=== PATIENT | female | born 1995 | race Caucasian/White ===

== ENCOUNTER 2018-08-29 07:09 | Emergency (ER) | payer BC ==
[~2018-08-29] VITALS: Ht 165.1 cm; Wt 92.1 kg
[2018-08-29] MEDS ORDERED: LOES1TAB12 PO (07:16)
[2018-08-29] MEDS ORDERED: IMOD2CAP PO (07:16)
[2018-08-29] MEDS ORDERED: ZOFR8TAB24 PO (07:17)
[2018-08-29] MEDS ORDERED: ONDANSETRON 4MG/2ML VIAL (J2405) IV ONE (07:45)
[2018-08-29] MEDS ORDERED: NS 1,000 ML IV ONE (07:45)
[2018-08-29] MEDS ORDERED: KETOROLAC 30 MG/ML VIAL (J1885) IV ONE (08:15)
[2018-08-29 08:26] LABS: BASO # 0.1 10^3/uL (0.0-0.2); BASO % 0.3 % (0.0-1.0); EOS % 0.3 % (0.0-3.0); HEMATOCRIT 45.8 % (36.0-47.0); HEMOGLOBIN 15.2 g/dl (12.0-15.5); LYMPH # 1.8 10^3/uL (1.5-6.5); LYMPH % 11.8 % (24.0-44.0); MEAN CORPUSCULAR HEMOGLOBIN 28.9 pg (27.0-33.0); MEAN CORPUSCULAR HGB CONC 33.2 g/dl (32.0-36.5); MEAN CORPUSCULAR VOLUME 87.1 fl (80.0-96.0); MONO # 0.9 10^3/uL (0.0-0.8); MONO % 6.3 % (0.0-5.0); NEUTROPHILS # 12.1 10^3/uL (1.8-7.7); NEUTROPHILS % 80.9 % (36.0-66.0); PLATELET COUNT, AUTOMATED 368 10^3/uL (150-450); RED BLOOD COUNT 5.26 10^6/uL (4.00-5.40); WHITE BLOOD COUNT 14.9 10^3/uL (4.0-10.0)
[2018-08-29 09:06] LABS: ALBUMIN 3.7 GM/DL (3.2-5.2); ALT/SGPT 56 U/L (12-78); AMYLASE 32 U/L (25-115); BILIRUBIN,DIRECT < 0.1 MG/DL (0.0-0.2); BILIRUBIN,TOTAL 0.3 MG/DL (0.2-1.0); BLOOD UREA NITROGEN 7 MG/DL (7-18); CALCIUM LEVEL 8.9 MG/DL (8.5-10.1); CARBON DIOXIDE LEVEL 25 MEQ/L (21-32); CHLORIDE LEVEL 104 MEQ/L (98-107); CREATININE FOR GFR 0.78 MG/DL (0.55-1.30); GLOMERULAR FILTRATION RATE > 60.0 (>60); GLUCOSE, FASTING 104 MG/DL (70-100); LIPASE 68 U/L (73-393); POTASSIUM SERUM 4.9 MEQ/L (3.5-5.1); SODIUM LEVEL 136 MEQ/L (136-145); TOTAL PROTEIN 7.9 GM/DL (6.4-8.2)
--- NOTE | 2018-08-29 09:23 | REP ---
Right upper quadrant sonography: History: Epigastric abdominal pain, worse after eating. Nausea. No comparison imaging. Findings: Scanning through right upper quadrant of the abdomen demonstrates normal sized thin-walled gallbladder without evidence of stone or polyp. Common bile duct is normal measuring no 0.2 cm. No intrahepatic ductal dilation is seen. There is a hypoechoic lesion in the liver measuring 3.0 x 3.0 x 2.2 cm. This is seen high near the dome of the diaphragm in the right hepatic lobe. This merits further evaluation. It is not typical of a benign hemangioma. No other focal liver lesion is seen. Limited views of the pancreas show no abnormality. There is no evidence of ascites or right renal abnormality. The right kidney measures 11.3 x 4.4 x 4.6 cm. Impression: 3.0 cm focal mass lesion in the right lobe of the liver high near the dome of the diaphragm. Not typical for hemangioma. Recommend further evaluation with MRI scanning with and without intravenous contrast enhancement. Otherwise negative right upper quadrant sonography. Electronically Signed by Ezequiel Sandoval MD 08/29/2018 09:15 A
[2018-08-29] MEDS ORDERED: PROHANCE 279.3MG/ML 5ML VIAL (A9576) As Ordered ONE (10:02)
[2018-08-29] MEDS ORDERED: PROHANCE 279.3MG/ML 15ML VIAL (A9576) As Ordered ONE (10:03)
--- NOTE | 2018-08-29 12:09 | REP ---
MRI ABDOMEN AND LIVER WITHOUT AND WITH IV GADOLINIUM: HISTORY: Liver mass. Comparison is made with today's sonography. Gadolinium enhancement dose is 18.6 mL of intravenous ProHance. Axial and coronal T1 and T2-weighted sequences include spin echo, fast spin echo, diffusion, gradient echo, in- and [id number], and dynamically acquired sequential post contrast imaging. MRI FINDINGS: The lesion seen on ultrasound in the right lobe of the liver posteriorly and superiorly is observed on MRI. No other focal liver lesion is seen. The lesion shows heterogeneous T2 hyperintense signal. It appears slightly smaller on MR images, 2.5 cm in greatest diameter on T2-weighted scans. There is a mild pattern of restricted diffusion on diffusion-weighted scans within the lesion. There is subtle T1 hypointensity in the lesion. On the dynamic postcontrast images, there is bright arterial phase homogeneous enhancement. There is washout visible on the 1-minute image. Persistent enhancement is seen in the central portion. There is no evidence of central scar. No other abnormal enhancement is seen. There is an accessory splenule. No other morphologic abnormality. IMPRESSION: Small hypervascular liver lesion demonstrating washout. Characteristics most compatible with benign hepatic adenoma. Focal nodular hyperplasia could have this appearance as well. Recommend follow up sonography in 6-12 months. Electronically Signed by Ezequiel Sandoval MD 08/29/2018 04:02 P
[2018-08-29] MEDS ORDERED: OMEP20CA3 PO (12:11)
[2018-08-29 12:30] VITALS: BP 131/86
[2018-08-29] MEDS ORDERED: ONDA4TAB6 PO (20:20)
[2018-08-29] MEDS ORDERED: MAALSUS2 PO (20:20)
--- NOTE | 2018-08-30 06:27 | ED PDOC ---
Post-Departure Follow-Up [facility] faxed formal report of mri abd for fu Go Nielsen MD Aug 30, 2018 06:27
== END 2018-08-29 12:33 | disposition home or self-care (01) ==
LOC: M ED 07:09
DX: R10.13 Epigastric pain (principal); R91.1 Solitary pulmonary nodule; R11.0 Nausea; R19.7 Diarrhea, unspecified; Z79.899 Other long term (current) drug therapy; Z88.0 Allergy status to penicillin
CPT/HCPCS: 36415; 74183; 76705; 80048; 80076; 81001; 81025; 82150; 83690; 85025; 87507; 96361; 96374; 99284; A9576; J1885

== ENCOUNTER 2018-08-29 17:41 | Emergency (ER) | payer BC ==
[~2018-08-29] VITALS: Ht 165.1 cm; Wt 92.2 kg
[~2018-08-29 17:41] MED LIST: IMOD2CAP PO; LOES1TAB12 PO; OMEP20CA3 PO; ZOFR8TAB24 PO
[2018-08-29] MEDS ORDERED: GI COCKTAIL 50ML BTL(HYOSCYAMINE/MAALOX/LIDOCAINE VISCOUS)(1:3:1) PO ONE (19:30)
[2018-08-29] MEDS ORDERED: ONDANSETRON 4 MG ORAL DISINTEGRATING TAB (Q0162 PER 1MG) PO ONE (19:30)
[2018-08-29 19:41] LABS: BASO % 0.2 % (0.0-1.0); EOS % 0.1 % (0.0-3.0); HEMATOCRIT 43.8 % (36.0-47.0); HEMOGLOBIN 14.7 g/dl (12.0-15.5); LYMPH # 1.8 10^3/uL (1.5-6.5); LYMPH % 10.9 % (24.0-44.0); MEAN CORPUSCULAR HEMOGLOBIN 29.1 pg (27.0-33.0); MEAN CORPUSCULAR HGB CONC 33.6 g/dl (32.0-36.5); MEAN CORPUSCULAR VOLUME 86.6 fl (80.0-96.0); MONO # 1.2 10^3/uL (0.0-0.8); MONO % 7.1 % (0.0-5.0); NEUTROPHILS # 13.2 10^3/uL (1.8-7.7); NEUTROPHILS % 81.4 % (36.0-66.0); PLATELET COUNT, AUTOMATED 343 10^3/uL (150-450); RED BLOOD COUNT 5.06 10^6/uL (4.00-5.40); WHITE BLOOD COUNT 16.3 10^3/uL (4.0-10.0)
[2018-08-29 19:51] LABS: INR 0.93; PROTHROMBIN TIME 12.6 SECONDS (12.1-14.4)
[2018-08-29 19:52] LABS: PARTIAL THROMBOPLASTIN TIME 27.9 SECONDS (25.4-37.6)
[2018-08-29 20:04] LABS: ALBUMIN 3.6 GM/DL (3.2-5.2); ALT/SGPT 45 U/L (12-78); BILIRUBIN,DIRECT < 0.1 MG/DL (0.0-0.2); BILIRUBIN,TOTAL 0.2 MG/DL (0.2-1.0); BLOOD UREA NITROGEN 8 MG/DL (7-18); CALCIUM LEVEL 8.8 MG/DL (8.5-10.1); CARBON DIOXIDE LEVEL 25 MEQ/L (21-32); CHLORIDE LEVEL 107 MEQ/L (98-107); CREATININE FOR GFR 0.68 MG/DL (0.55-1.30); GLOMERULAR FILTRATION RATE > 60.0 (>60); GLUCOSE, FASTING 99 MG/DL (70-100); POTASSIUM SERUM 3.7 MEQ/L (3.5-5.1); SODIUM LEVEL 139 MEQ/L (136-145); TOTAL PROTEIN 7.1 GM/DL (6.4-8.2)
[2018-08-29] MEDS ORDERED: ONDA4TAB6 PO (20:20)
[2018-08-29] MEDS ORDERED: MAALSUS2 PO (20:20)
[2018-08-29 20:47] VITALS: BP 142/97
== END 2018-08-29 20:49 | disposition home or self-care (01) ==
LOC: M ED 17:41
DX: R10.13 Epigastric pain (principal); B96.23 Unspecified Shiga toxin-producing Escherichia coli [E. coli] [STEC] as the cause of diseases classified elsewhere; Z79.899 Other long term (current) drug therapy; Z79.3 Long term (current) use of hormonal contraceptives; Z88.8 Allergy status to other drugs, medicaments and biological substances
CPT/HCPCS: 36415; 80048; 80076; 81001; 85025; 85610; 85730; 99283; Q0162

== ENCOUNTER → 2019-02-05 | Outpatient (CLI) | payer BC ==
[~2019-02-05] MED LIST changes: +MAALSUS2 PO; -OMEP20CA3 PO; +OMEP20CA4 PO; +ONDA4TAB6 PO; +PROHANCE 279.3MG/ML 15ML VIAL (A9576) As Ordered ONE; +PROHANCE 279.3MG/ML 5ML VIAL (A9576) As Ordered ONE
--- NOTE | 2019-02-06 09:08 | REP ---
MRI LIVER WITH AND WITHOUT CONTRAST: Comparison MRI 08/29/2018. TECHNIQUE: Multiple sequences obtained in the axial and coronal planes prior to and following the intravenous administration of 17 mL ProHance. Once again, in the posterior segment of the right lobe of the liver near the dome there is an oval lesion which demonstrates mild T1 hypointensity and T2 heterogeneous hyperintensity. It is not significantly changed in size measuring approximately 2.6 cm in maximum diameter, previously 2.5 cm. A smaller lesion is seen more centrally adjacent to he inferior vena cava, just inferior to the level of the larger lesion. This lesion demonstrates similar signal characteristics with mild heterogeneous hyperintensity on T2. Both lesions demonstrate heterogeneous arterial phase enhancement with gradual washout on subsequent delayed dynamic post gadolinium imaging. Both lesions are unchanged since the prior study. No new lesion is seen. Spleen is normal in size with no intrinsic abnormality. The adrenals and pancreas are unremarkable. The visualized kidneys are unremarkable. I see no adenopathy or free fluid in the visualized abdomen. IMPRESSION: Two stable liver lesions as described in detail above. These lesions are most consistent with either adenomas or focal nodular hyperplasia. Recommend followup MRI in 6-12 months. Electronically Signed by Juvenal Greenwood MD 02/06/2019 09:52 A
== END ==
LOC: M RAD 16:46
PROVIDERS: ATTEND Family Medicine
DX: K76.9 Liver disease, unspecified (principal)

== ENCOUNTER → 2020-02-21 | Outpatient (CLI) | payer BC ==
[~2020-02-21] MED LIST changes: +OMEP1CAP73 PO; -OMEP20CA4 PO; -PROHANCE 279.3MG/ML 15ML VIAL (A9576) As Ordered ONE; +PROHANCE 279.3MG/ML 15ML VIAL As Ordered ONE; -PROHANCE 279.3MG/ML 5ML VIAL (A9576) As Ordered ONE; +PROHANCE 279.3MG/ML 5ML VIAL As Ordered ONE
--- NOTE | 2020-02-21 09:46 | REPVR ---
PROCEDURE INFORMATION: Exam: MR Abdomen Without and With Contrast; Liver Exam date and time: 02/21/2020 8:59 AM Age: 24 years old Clinical indication: Condition or disease; Patient HX: Known lesion for recheck; Additional info: Liver nodule TECHNIQUE: Imaging protocol: MR Abdomen with and without intravenous contrast. Exam focused on the liver. Contrast material: PROHANCE; Contrast volume: 20 ml; Contrast route: INTRAVENOUS (IV); COMPARISON: 1. MRI ABD W/O FOL WITH 02/05/2019 5:25 PM 2. MRI ABD W/O FOL WITH 08/29/2018 9:59:59 AM FINDINGS: Liver: As reported on the study 2 weeks ago, there is a 24 x 30 x 25 mm well-demarcated lesion in liver segment 7 which is more conspicuous before contrast with a thin rim of hyperintensity on series 901 than on the more recent study but similar to the examination in August. There is immediate arterial phase enhancement remaining brighter than adjacent liver throughout the 10 minutes follow-up. There are areas which are more intensely vascular medially and laterally. Heterogeneous increased T2 signal is seen with most intense signal where most intense enhancement is observed. The dimensions of this lesion have increased since August where measurements of the enhancing lesion were 19 x 27 x 19 mm. The irregular intense enhancement of liver segment 1 anterior to the vena cava on images 63 of the contrast series also demonstrates increased T2 signal and is unchanged from the prior studies. Gallbladder and bile ducts: Normal gallbladder. No biliary ductal dilatation. Pancreas: Normal. Kidneys and ureters: Normal kidneys. Visualized ureters are unremarkable. Intraperitoneal space: No free fluid. IMPRESSION: The larger of the segment 7 lesion of the liver is somewhat larger than in August but unchanged in 2 weeks. There is no evidence of change of the segment 1 lesion. Electronically signed by: Johan Kaiser On 02/21/2020 09:46:28 AM
== END ==
LOC: M RAD 07:43
PROVIDERS: ATTEND Family Medicine
DX: K76.89 Other specified diseases of liver (principal)
CPT/HCPCS: 74183; A9576

== ENCOUNTER → 2020-04-29 | Outpatient (CLI) | payer SELFPAY ==
[~2020-04-29] MED LIST changes: -PROHANCE 279.3MG/ML 15ML VIAL As Ordered ONE; -PROHANCE 279.3MG/ML 5ML VIAL As Ordered ONE
== END ==
LOC: M LABSMTC 10:54
PROVIDERS: ATTEND Pediatrics
DX: Z20.828 Contact with and (suspected) exposure to other viral communicable diseases (principal)

== ENCOUNTER → 2020-05-21 | Outpatient (CLI) | payer BC ==
[2020-05-21 14:56] LABS: HCG, SERUM QUALITATIVE NEGATIVE (NEGATIVE)
[2020-05-21 14:59] LABS: FREE T4 0.97 NG/DL (0.76-1.46); GLUCOSE,RANDOM 78 MG/DL (LESS THAN 200); LUTEINIZING HORMONE 14.3 mIU/mL; PROLACTIN 10.3 NG/ML
[2020-05-21 15:30] LABS: HEMOGLOBIN A1c 5.6 %
[2020-05-31 14:07] LABS: 17 HYDROXY PROGESTERONE 115 ng/dL (.); INSULIN FREE 7.8 uU/mL (.); INSULIN TOTAL2 7.8 uU/mL (.)
== END ==
LOC: M LAB 13:04
PROVIDERS: ATTEND Advanced Practice Midwife
DX: N92.6 Irregular menstruation, unspecified (principal)

== ENCOUNTER → 2020-06-24 | Outpatient (REF) | payer BC ==
[2020-06-24 14:53] LABS: HCG, SERUM QUALITATIVE NEGATIVE (NEGATIVE)
== END ==
LOC: M PLALAB 11:23
PROVIDERS: ATTEND Advanced Practice Midwife
DX: E28.2 Polycystic ovarian syndrome (principal)

== ENCOUNTER → 2020-09-11 | Outpatient (CLI) | payer BC ==
[~2020-09-11] MED LIST changes: +PROHANCE 279.3MG/ML 15ML VIAL As Ordered ONE; +PROHANCE 279.3MG/ML 5ML VIAL As Ordered ONE
--- NOTE | 2020-09-11 12:08 | REP ---
INDICATION: LIVER DISEASE. COMPARISON: 02/21/2020. TECHNIQUE: Multiple sequences obtained in the axial coronal planes prior to and following the intravenous administration of 19 cc ProHance. FINDINGS: There is diffuse fatty infiltration of the liver. There is hepatomegaly, the length of the liver is approximately 20 cm. In the posterior right lobe of the liver superiorly there is again a nodule identified which is mildly hyperintense on T2 weighted images demonstrates arterial phase enhancement with mild washout on subsequent delayed sequences. It measures approximately 2.4 x 2.6 cm, previously by my measurements 2.9 x 2.7 cm, therefore I suspect this has slightly decreased in size. The ill-defined area of high signal on T2 anterior to the inferior vena cava, with mild ill-defined enhancement, is unchanged in size and appearance. No new liver lesions are seen. The gallbladder is grossly unremarkable. There is no biliary dilatation. The spleen is normal in size with no intrinsic abnormality. The adrenal glands are normal. No pancreatic mass is seen. The kidneys appear normal. There is no adenopathy or free fluid in the abdomen. IMPRESSION: Diffuse fatty infiltration of the liver with mild hepatomegaly. The enhancing nodule in the posterior right lobe of the liver appears to have slightly decreased in size compared to the prior exam of 02/21/2020. The lesion anterior to the inferior vena cava is stable. No new liver lesions. <Electronically signed by Juvenal Greenwood > 09/11/20 [id number]
== END ==
LOC: M RAD 07:53
PROVIDERS: ATTEND Internal Medicine Gastroenterology
DX: K76.9 Liver disease, unspecified (principal)

== ENCOUNTER → 2021-03-26 | Outpatient (CLI) | payer BC ==
--- NOTE | 2021-03-26 10:29 | REP ---
INDICATION: LIVER DX. COMPARISON: 09/11/2020 as well as other prior exams. TECHNIQUE: Multiple sequences obtained in the axial coronal planes prior to and following the intravenous administration of 20 mL ProHance. FINDINGS: Hepatomegaly and diffuse heterogeneous fatty infiltration of the liver is unchanged. Once again in the right lobe of the liver, superior aspect, there is an enhancing nodule which measures approximately 2.4 x 2.6 cm, unchanged. Anterior to the inferior vena cava there is a vague ill-defined area of high signal on T2 with mild ill-defined enhancement. This appears unchanged. No new liver lesion is seen. The gallbladder is grossly unremarkable. There is no biliary dilatation. Spleen is normal in size with no intrinsic abnormality. The adrenal glands are normal. No pancreatic abnormality is seen. There is no pancreatic duct dilatation. There is no abnormality of the kidneys. There is no adenopathy or free fluid in the abdomen. IMPRESSION: Stable liver findings as discussed above. <Electronically signed by Juvenal Greenwood > 03/26/21 [id number]
== END ==
LOC: M RAD 07:40
PROVIDERS: ATTEND Internal Medicine Gastroenterology
DX: R16.0 Hepatomegaly, not elsewhere classified (principal); K76.0 Fatty (change of) liver, not elsewhere classified
CPT/HCPCS: 74183; A9576

== ENCOUNTER → 2021-03-30 | Outpatient (REF) ==
[~2021-03-30] MED LIST changes: -PROHANCE 279.3MG/ML 15ML VIAL As Ordered ONE; -PROHANCE 279.3MG/ML 5ML VIAL As Ordered ONE
[2021-03-30 14:01] LABS: RSV AMPLIFICATION NEGATIVE (NEGATIVE)
== END ==
LOC: M EMP 12:48
PROVIDERS: ATTEND Family Medicine
DX: Z11.52 Encounter for screening for COVID-19 (principal)

== ENCOUNTER → 2021-07-11 | Outpatient (REF) | LOC: M EMP 04:51 | PROVIDERS: ATTEND Family Medicine | DX: Z20.822 Contact with and (suspected) exposure to COVID-19 (principal) ==

== ENCOUNTER → 2021-07-30 | Outpatient (CLI) | payer BC ==
[2021-07-30 09:55] LABS: BLOOD UREA NITROGEN 12 MG/DL (7-18); CALCIUM LEVEL 9.5 MG/DL (8.5-10.1); CARBON DIOXIDE LEVEL 30 MEQ/L (21-32); CHLORIDE LEVEL 103 MEQ/L (98-107); CREATININE FOR GFR 0.74 MG/DL (0.55-1.30); GLOMERULAR FILTRATION RATE > 60.0 (>60); GLUCOSE, FASTING 74 MG/DL (70-100); POTASSIUM SERUM 4.2 MEQ/L (3.5-5.1); SODIUM LEVEL 138 MEQ/L (136-145)
[2021-07-30 12:35] LABS: TESTOSTERONE 67 NG/DL (14-76)
== END ==
LOC: M LAB 07:30
PROVIDERS: ATTEND Internal Medicine Endocrinology, Diabetes & Metabolism
DX: L68.0 Hirsutism (principal)

== ENCOUNTER → 2021-10-20 | Outpatient (CLI) | payer BC ==
[~2021-10-20] MED LIST changes: +PROHANCE 279.3MG/ML 15ML VIAL As Ordered ONE; +PROHANCE 279.3MG/ML 5ML VIAL As Ordered ONE
== END ==
LOC: M RAD 07:20
PROVIDERS: ATTEND Internal Medicine Gastroenterology
DX: K76.0 Fatty (change of) liver, not elsewhere classified (principal)

== ENCOUNTER → 2022-01-20 | Outpatient (REF) | payer BC ==
[~2022-01-20] MED LIST changes: -PROHANCE 279.3MG/ML 15ML VIAL As Ordered ONE; -PROHANCE 279.3MG/ML 5ML VIAL As Ordered ONE
== END ==
LOC: M PLALAB 16:54
PROVIDERS: ATTEND Advanced Practice Midwife
DX: Z12.4 Encounter for screening for malignant neoplasm of cervix (principal)

== ENCOUNTER → 2022-01-21 | Outpatient (REF) | payer BC | LOC: M PLALAB 14:14 | PROVIDERS: ATTEND Advanced Practice Midwife | DX: Z12.4 Encounter for screening for malignant neoplasm of cervix (principal); E28.2 Polycystic ovarian syndrome ==

== ENCOUNTER → 2022-02-27 | Outpatient (CLI) | payer BC ==
[2022-02-27 10:30] LABS: BLOOD UREA NITROGEN 11 MG/DL (7-18); CALCIUM LEVEL 9.3 MG/DL (8.5-10.1); CARBON DIOXIDE LEVEL 29 MEQ/L (21-32); CHLORIDE LEVEL 104 MEQ/L (98-107); CREATININE FOR GFR 0.74 MG/DL (0.55-1.30); GLOMERULAR FILTRATION RATE > 60.0 (>60); GLUCOSE, FASTING 97 MG/DL (70-100); POTASSIUM SERUM 4.7 MEQ/L (3.5-5.1); SODIUM LEVEL 137 MEQ/L (136-145)
[2022-02-28 08:58] LABS: TESTOSTERONE 56 NG/DL (14-76)
== END ==
LOC: M LAB 09:18
PROVIDERS: ATTEND Internal Medicine Endocrinology, Diabetes & Metabolism
DX: E28.2 Polycystic ovarian syndrome (principal)

== ENCOUNTER → 2022-02-27 | Outpatient (CLI) | payer BC | LOC: M LAB 09:22 | PROVIDERS: ATTEND Advanced Practice Midwife | DX: E28.2 Polycystic ovarian syndrome (principal) ==

== ENCOUNTER → 2022-02-27 | Outpatient (CLI) | payer BC ==
[2022-02-27 10:42] LABS: ALT/SGPT 38 U/L (12-78); BILIRUBIN,TOTAL 0.5 MG/DL (0.2-1.0); BLOOD UREA NITROGEN 11 MG/DL (7-18); CALCIUM LEVEL 9.2 MG/DL (8.5-10.1); CARBON DIOXIDE LEVEL 29 MEQ/L (21-32); CHLORIDE LEVEL 104 MEQ/L (98-107); CHOLESTEROL LEVEL 190 MG/DL (<200); CHOLESTEROL RISK RATIO 4.222 (<5); CREATININE FOR GFR 0.77 MG/DL (0.55-1.30); GLOMERULAR FILTRATION RATE > 60.0 (>60); GLUCOSE, FASTING 96 MG/DL (70-100); HDL CHOLESTEROL 45 MG/DL (>40); LDL CHOLESTEROL 113 MG/DL (<100); NON-HDL-C 145 MG/DL; POTASSIUM SERUM 4.6 MEQ/L (3.5-5.1); SODIUM LEVEL 138 MEQ/L (136-145); TOTAL PROTEIN 7.6 GM/DL (6.4-8.2); TRIGLYCERIDES LEVEL 159 MG/DL (<150)
== END ==
LOC: M LAB 09:25
PROVIDERS: ATTEND Student in an Organized Health Care Education/Training Program
DX: E28.2 Polycystic ovarian syndrome (principal)

== ENCOUNTER → 2022-05-02 | Outpatient (CLI) | payer BC ==
[~2022-05-02] MED LIST changes: +PROHANCE 279.3MG/ML 15ML VIAL As Ordered ONE; +PROHANCE 279.3MG/ML 5ML VIAL As Ordered ONE
== END ==
LOC: M RAD 08:07
PROVIDERS: ATTEND Internal Medicine Gastroenterology
DX: K76.9 Liver disease, unspecified (principal)

== ENCOUNTER → 2022-05-03 | Outpatient (REF) ==
[~2022-05-03] MED LIST changes: -PROHANCE 279.3MG/ML 15ML VIAL As Ordered ONE; -PROHANCE 279.3MG/ML 5ML VIAL As Ordered ONE
[2022-05-03 13:24] LABS: RSV AMPLIFICATION NEGATIVE (NEGATIVE)
== END ==
LOC: M LABSMTC 09:42
PROVIDERS: ATTEND Family Medicine
DX: Z00.00 Encounter for general adult medical examination without abnormal findings (principal)

== ENCOUNTER → 2022-07-31 | Outpatient (CLI) | payer BC ==
[2022-07-31 11:01] LABS: HEMATOCRIT 45.1 % (36.0-47.0); HEMOGLOBIN 14.4 g/dl (12.0-15.5); MEAN CORPUSCULAR HEMOGLOBIN 28.1 pg (27.0-33.0); MEAN CORPUSCULAR HGB CONC 31.9 g/dl (32.0-36.5); MEAN CORPUSCULAR VOLUME 88.1 fl (80.0-96.0); PLATELET COUNT, AUTOMATED 453 10^3/uL (150-450); RED BLOOD COUNT 5.12 10^6/uL (4.00-5.40)
[2022-07-31 11:15] LABS: HEMOGLOBIN A1c 5.8 % (4.0-6.0)
[2022-07-31 11:27] LABS: HCG, SERUM QUANTITATIVE < 2.6 MIU/ML (<4.2)
[2022-07-31 11:30] LABS: THYROID STIMULATING HORMONE 2.075 uIU/ML (0.55-4.78)
[2022-07-31 11:31] LABS: ALBUMIN 3.8 G/DL (3.2-5.2); ALKALINE PHOSPHATASE 92 U/L (46-116); ALT/SGPT 27 U/L (7.0-40); AST/SGOT 23 U/L (<34); BILIRUBIN,TOTAL 0.6 MG/DL (0.3-1.2); BLOOD UREA NITROGEN 12 MG/DL (9-23); CALCIUM LEVEL 9.1 MG/DL (8.5-10.1); CARBON DIOXIDE LEVEL 28 MMOL/L (20-31); CHLORIDE LEVEL 106 MMOL/L (98-107); CREATININE FOR GFR 0.63 MG/DL (0.55-1.30); FOLLICLE STIMULATING HORMONE 5.2 mIU/ML; GLOMERULAR FILTRATION RATE > 60.0 (>60); GLUCOSE, FASTING 91 MG/DL (60-100); POTASSIUM SERUM 4.6 MMOL/L (3.5-5.1); PROLACTIN 10.22 NG/ML; SODIUM LEVEL 140 MMOL/L (136-145); TOTAL PROTEIN 7.1 G/DL (5.7-8.2)
[2022-07-31 11:32] LABS: ESTRADIOL 34.9 PG/ML; LUTEINIZING HORMONE 10.1 mIU/ML; TOTAL 25(OH) VITAMIN D 28.4 NG/ML (20.0-100.0)
[2022-07-31 11:33] LABS: PROGESTERONE 0.67 NG/ML; TESTOSTERONE 51 NG/DL (14-76)
[2022-07-31 11:42] LABS: HEPATITIS B SURFACE ANTIGEN NEGATIVE (NEGATIVE)
[2022-07-31 11:56] LABS: HIV 1&2 SCREEN CENTAUR NEGATIVE (NEGATIVE)
[2022-07-31 12:03] LABS: HEPATITIS C VIRUS ABY INDEX < 0.0 INDEX (<0.8)
== END ==
LOC: M LAB 10:25
PROVIDERS: ATTEND Obstetrics & Gynecology Reproductive Endocrinology
DX: Z31.41 Encounter for fertility testing (principal)

== ENCOUNTER → 2022-10-14 | Outpatient (CLI) | payer BC ==
[2022-10-14 09:14] LABS: HCG, SERUM QUANTITATIVE 6.3 MIU/ML (<4.2)
[2022-10-14 09:18] LABS: ESTRADIOL 527.8 PG/ML
[2022-10-14 09:19] LABS: PROGESTERONE 15.23 NG/ML
== END ==
LOC: M LAB 08:15
PROVIDERS: ATTEND Obstetrics & Gynecology Reproductive Endocrinology
DX: Z31.49 Encounter for other procreative investigation and testing (principal)

== ENCOUNTER → 2022-10-21 | Outpatient (CLI) | payer BC ==
[2022-10-21 09:06] LABS: HCG, SERUM QUANTITATIVE < 2.6 MIU/ML (<4.2)
[2022-10-21 09:10] LABS: PROGESTERONE 2.03 NG/ML
== END ==
LOC: M LAB 07:46
PROVIDERS: ATTEND Obstetrics & Gynecology Reproductive Endocrinology
DX: Z32.00 Encounter for pregnancy test, result unknown (principal)

== ENCOUNTER → 2022-11-21 | Outpatient (CLI) | payer BC ==
[2022-11-21 10:16] LABS: PROGESTERONE 67.65 NG/ML
== END ==
LOC: M LAB 08:56
PROVIDERS: ATTEND Obstetrics & Gynecology Reproductive Endocrinology
DX: Z31.49 Encounter for other procreative investigation and testing (principal)

== ENCOUNTER → 2022-11-29 | Outpatient (CLI) | payer BC ==
[2022-11-29 09:57] LABS: HCG, SERUM QUANTITATIVE 19.1 MIU/ML (<4.2)
[2022-11-29 10:02] LABS: PROGESTERONE 6.75 NG/ML
== END ==
LOC: M LAB 09:10
PROVIDERS: ATTEND Obstetrics & Gynecology Reproductive Endocrinology
DX: Z32.00 Encounter for pregnancy test, result unknown (principal)

== ENCOUNTER → 2022-12-02 | Outpatient (CLI) | payer BC ==
[2022-12-02 08:08] LABS: HCG, SERUM QUANTITATIVE 25.3 MIU/ML (<4.2)
[2022-12-02 08:12] LABS: ESTRADIOL 96.3 PG/ML; THYROID STIMULATING HORMONE 4.235 uIU/ML (0.55-4.78)
[2022-12-02 08:13] LABS: PROGESTERONE 8.22 NG/ML
== END ==
LOC: M LAB 07:24
PROVIDERS: ATTEND Obstetrics & Gynecology Reproductive Endocrinology
DX: Z32.01 Encounter for pregnancy test, result positive (principal)

== ENCOUNTER → 2022-12-06 | Outpatient (CLI) | payer BC ==
[2022-12-06 09:12] LABS: HCG, SERUM QUANTITATIVE 30.2 MIU/ML (<4.2)
[2022-12-06 09:17] LABS: PROGESTERONE 2.45 NG/ML
== END ==
LOC: M LAB 08:02
PROVIDERS: ATTEND Obstetrics & Gynecology Reproductive Endocrinology
DX: O02.81 Inappropriate change in quantitative human chorionic gonadotropin (hCG) in early pregnancy (principal)

== ENCOUNTER → 2022-12-09 | Outpatient (CLI) | payer BC ==
[2022-12-09 10:27] LABS: HCG, SERUM QUANTITATIVE 70.7 MIU/ML (<4.2)
[2022-12-09 10:31] LABS: PROGESTERONE 35.71 NG/ML
[2022-12-09 10:32] LABS: ESTRADIOL 90.8 PG/ML
== END ==
LOC: M LAB 09:37
PROVIDERS: ATTEND Obstetrics & Gynecology Reproductive Endocrinology
DX: Z32.01 Encounter for pregnancy test, result positive (principal)

== ENCOUNTER → 2022-12-12 | Outpatient (CLI) | payer BC ==
[2022-12-12 08:09] LABS: HCG, SERUM QUANTITATIVE 140.1 MIU/ML (<4.2)
[2022-12-12 08:13] LABS: ESTRADIOL 100.7 PG/ML
[2022-12-12 08:14] LABS: PROGESTERONE 8.76 NG/ML
== END ==
LOC: M LAB 07:12
PROVIDERS: ATTEND Obstetrics & Gynecology Reproductive Endocrinology
DX: Z32.01 Encounter for pregnancy test, result positive (principal)

== ENCOUNTER → 2023-01-03 | Outpatient (CLI) | payer BC | LOC: M LAB 07:28 | PROVIDERS: ATTEND Obstetrics & Gynecology Reproductive Endocrinology | DX: O02.1 Missed abortion (principal) ==

== ENCOUNTER 2023-01-06 18:41 | Emergency (ER) | payer BC ==
[~2023-01-06] VITALS: Ht 165.1 cm; Wt 100.0 kg
[2023-01-06 18:42] VITALS: BP 139/92; TEMP 97.8; O2SAT 99
[2023-01-06] MEDS ORDERED: CEPHALEXIN 500 MG CAP PO ONE (20:40)
[2023-01-07] MEDS ORDERED: CEPH500C PO (19:41)
== END 2023-01-06 21:05 | disposition home or self-care (01) ==
LOC: M ED 20:40
DX: H60.02 Abscess of left external ear (principal); S00.452A Superficial foreign body of left ear, initial encounter; X58.XXXA Exposure to other specified factors, initial encounter; Y92.89 Other specified places as the place of occurrence of the external cause; Y93.89 Activity, other specified; Y99.8 Other external cause status

== ENCOUNTER → 2023-01-10 | Outpatient (CLI) | payer BC ==
[~2023-01-10] MED LIST changes: +CEPH500C PO
== END ==
LOC: M LAB 10:08
PROVIDERS: ATTEND Obstetrics & Gynecology Reproductive Endocrinology
DX: O02.1 Missed abortion (principal)

== ENCOUNTER → 2023-01-17 | Outpatient (CLI) | payer BC | LOC: M LAB 07:48 | PROVIDERS: ATTEND Obstetrics & Gynecology Reproductive Endocrinology | DX: O02.1 Missed abortion (principal) ==

== ENCOUNTER → 2023-01-25 | Outpatient (CLI) | payer BC | LOC: M LAB 07:37 | PROVIDERS: ATTEND Obstetrics & Gynecology Reproductive Endocrinology | DX: O02.1 Missed abortion (principal) ==

== ENCOUNTER → 2023-03-14 | Outpatient (CLI) | payer BC ==
[2023-03-14 09:13] LABS: HCG, SERUM QUANTITATIVE < 2.6 MIU/ML (<4.2)
[2023-03-14 09:17] LABS: PROGESTERONE 14.54 NG/ML
== END ==
LOC: M LAB 08:15
PROVIDERS: ATTEND Obstetrics & Gynecology Reproductive Endocrinology
DX: Z32.00 Encounter for pregnancy test, result unknown (principal)

== ENCOUNTER → 2023-05-19 | Outpatient (REF) | LOC: M EMP 08:47 | PROVIDERS: ATTEND Family Medicine | DX: Z11.52 Encounter for screening for COVID-19 (principal) ==

== ENCOUNTER → 2023-06-22 | Outpatient (CLI) | payer BC ==
[2023-06-22 10:35] LABS: BASO % 0.5 % (0.0-1.0); EOS # 0.1 10^3/uL (0.0-0.5); EOS % 1.2 % (0.0-3.0); HEMATOCRIT 45.7 % (36.0-47.0); HEMOGLOBIN 14.5 g/dl (12.0-15.5); MEAN CORPUSCULAR HEMOGLOBIN 28.2 pg (27.0-33.0); MEAN CORPUSCULAR HGB CONC 31.7 g/dl (32.0-36.5); MEAN CORPUSCULAR VOLUME 88.9 fl (80.0-96.0); MONO # 0.6 10^3/uL (0.0-0.8); MONO % 8.4 % (2.0-8.0); NEUTROPHILS # 3.7 10^3/uL (1.5-8.5); NEUTROPHILS % 49.6 % (36.0-66.0); PLATELET COUNT, AUTOMATED 378 10^3/uL (150-450); RED BLOOD COUNT 5.14 10^6/uL (4.00-5.40); WHITE BLOOD COUNT 7.5 10^3/uL (4.0-10.0)
[2023-06-22 11:03] LABS: HCG, SERUM QUANTITATIVE < 2.6 MIU/ML (<4.2)
[2023-06-22 11:05] LABS: ALBUMIN 3.7 G/DL (3.2-5.2); ALKALINE PHOSPHATASE 79 U/L (46-116); ALT/SGPT 37 U/L (7.0-40); AST/SGOT 20 U/L (<34); BILIRUBIN,TOTAL 0.5 MG/DL (0.3-1.2); BLOOD UREA NITROGEN 12 MG/DL (9-23); CALCIUM LEVEL 9.2 MG/DL (8.5-10.1); CARBON DIOXIDE LEVEL 29 MMOL/L (20-31); CHLORIDE LEVEL 108 MMOL/L (98-107); CREATININE FOR GFR 0.69 MG/DL (0.55-1.30); GLOMERULAR FILTRATION RATE > 60.0 (>60); GLUCOSE, FASTING 100 MG/DL (60-100); POTASSIUM SERUM 4.7 MMOL/L (3.5-5.1); SODIUM LEVEL 140 MMOL/L (136-145); TOTAL PROTEIN 6.8 G/DL (5.7-8.2)
== END ==
LOC: M LAB 10:02 → M PLALAB 10:02
PROVIDERS: ATTEND Obstetrics & Gynecology Reproductive Endocrinology
DX: Z01.812 Encounter for preprocedural laboratory examination (principal)

== ENCOUNTER → 2023-08-28 | Outpatient (CLI) | payer BC ==
[2023-08-28 10:25] LABS: ESTRADIOL 3712.7 PG/ML; PROGESTERONE 65.12 NG/ML
== END ==
LOC: M LAB 08:46
PROVIDERS: ATTEND Obstetrics & Gynecology Reproductive Endocrinology
DX: Z31.49 Encounter for other procreative investigation and testing (principal)

== ENCOUNTER → 2023-09-04 | Outpatient (CLI) | payer BC ==
[2023-09-04 09:40] LABS: HCG, SERUM QUANTITATIVE < 2.6 MIU/ML (<4.2)
[2023-09-04 10:09] LABS: PROGESTERONE 82.24 NG/ML
== END ==
LOC: M LAB 08:24
PROVIDERS: ATTEND Obstetrics & Gynecology Reproductive Endocrinology
DX: Z32.00 Encounter for pregnancy test, result unknown (principal)

== ENCOUNTER → 2024-10-07 | Outpatient (CLI) | payer BC ==
[~2024-10-07] MED LIST changes: +ONDA-282 PO; -ONDA4TAB6 PO
[2024-10-07 16:14] LABS: HEMATOCRIT 44.5 % (36.0-47.0); HEMOGLOBIN 14.5 g/dl (12.0-15.5); MEAN CORPUSCULAR HEMOGLOBIN 29.1 pg (27.0-33.0); MEAN CORPUSCULAR HGB CONC 32.6 g/dl (32.0-36.5); MEAN CORPUSCULAR VOLUME 89.2 fl (80.0-96.0); PLATELET COUNT, AUTOMATED 375 10^3/uL (150-450); RED BLOOD COUNT 4.99 10^6/uL (4.00-5.40); WHITE BLOOD COUNT 8.7 10^3/uL (4.0-10.0)
[2024-10-07 16:49] LABS: HCG, SERUM QUANTITATIVE < 2.6 MIU/ML (<4.2)
[2024-10-07 16:50] LABS: ALKALINE PHOSPHATASE 78 U/L (35-104); ALT/SGPT 15 U/L (7.0-40); AST/SGOT 13 U/L (<34); BILIRUBIN,TOTAL 0.4 MG/DL (0.3-1.2); BLOOD UREA NITROGEN 18 MG/DL (9-23); CALCIUM LEVEL 9.6 MG/DL (8.5-10.1); CARBON DIOXIDE LEVEL 28 MMOL/L (20-31); CHLORIDE LEVEL 104 MMOL/L (98-107); CREATININE FOR GFR 0.58 MG/DL (0.55-1.30); GLOMERULAR FILTRATION RATE > 90.0 (>60); GLUCOSE, FASTING 80 MG/DL (60-100); POTASSIUM SERUM 4.5 MMOL/L (3.5-5.1); SODIUM LEVEL 140 MMOL/L (136-145); TOTAL PROTEIN 7.1 G/DL (5.7-8.2)
[2024-10-07 16:53] LABS: FREE T4 1.05 NG/DL (0.89-1.76)
[2024-10-07 16:54] LABS: LUTEINIZING HORMONE 9.1 mIU/ML; PROLACTIN 10.06 NG/ML; THYROID STIMULATING HORMONE 1.431 uIU/ML (0.55-4.78)
[2024-10-07 16:55] LABS: FOLLICLE STIMULATING HORMONE 5.6 mIU/ML; TOTAL 25(OH) VITAMIN D 39.4 NG/ML (20.0-100.0)
[2024-10-07 16:56] LABS: PROGESTERONE 0.47 NG/ML
[2024-10-07 16:57] LABS: TESTOSTERONE 30 NG/DL (14-76)
[2024-10-07 17:05] LABS: HEMOGLOBIN A1c 5.2 % (4.0-6.0)
[2024-10-07 17:06] LABS: HEPATITIS B SURFACE ANTIGEN NEGATIVE (NEGATIVE)
[2024-10-07 17:15] LABS: FREE T3 3.6 PG/ML (2.3-4.2)
[2024-10-07 17:16] LABS: THYROID PEROXIDASE ANTIBODY 33 U/ML (<60.0)
[2024-10-07 17:19] LABS: HIV 1&2 SCREEN NEGATIVE (NEGATIVE)
[2024-10-07 17:25] LABS: HEPATITIS C VIRUS ABY INDEX < 0.02 INDEX (<0.8)
== END ==
LOC: M LAB 15:00
PROVIDERS: ATTEND Obstetrics & Gynecology Reproductive Endocrinology
DX: Z31.41 Encounter for fertility testing (principal)

== ENCOUNTER → 2024-12-25 | Outpatient (CLI) | payer BC ==
[2024-12-25 14:03] LABS: ESTRADIOL 387.1 PG/ML
[2024-12-25 14:27] LABS: PROGESTERONE 75.74 NG/ML
== END ==
LOC: M LAB 12:42
PROVIDERS: ATTEND Obstetrics & Gynecology Reproductive Endocrinology
DX: Z31.49 Encounter for other procreative investigation and testing (principal)

== ENCOUNTER → 2025-01-01 | Outpatient (CLI) | payer BC ==
[2025-01-01 12:44] LABS: HCG, SERUM QUANTITATIVE 198.3 MIU/ML (<4.2)
[2025-01-01 13:11] LABS: PROGESTERONE 63.27 NG/ML
== END ==
LOC: M LAB 11:47
PROVIDERS: ATTEND Obstetrics & Gynecology Reproductive Endocrinology
DX: Z32.00 Encounter for pregnancy test, result unknown (principal)

== ENCOUNTER → 2025-01-03 | Outpatient (CLI) | payer BC ==
[2025-01-03 12:10] LABS: HCG, SERUM QUANTITATIVE 558.8 MIU/ML (<4.2)
[2025-01-03 12:15] LABS: ESTRADIOL 1186.9 PG/ML
[2025-01-03 12:34] LABS: PROGESTERONE 169.68 NG/ML
== END ==
LOC: M LAB 11:07
PROVIDERS: ATTEND Obstetrics & Gynecology Reproductive Endocrinology
DX: Z32.01 Encounter for pregnancy test, result positive (principal)

== ENCOUNTER → 2025-02-07 | Outpatient (REF) | payer BC | LOC: M PLALAB 08:43 | PROVIDERS: ATTEND Advanced Practice Midwife | DX: Z53.9 Procedure and treatment not carried out, unspecified reason (principal) ==

== ENCOUNTER → 2025-02-21 | Outpatient (CLI) | payer BC ==
[2025-02-21 15:42] LABS: TOTAL PROTEIN,RANDOM URINE 9.2 MG/DL (0.0-14.0)
[2025-02-21 15:58] LABS: PLATELET COUNT, AUTOMATED 380 10^3/uL (150-450)
[2025-02-21 16:25] LABS: LDH LACTATE DEHYDROGENASE 183 U/L (120-246)
[2025-02-21 16:26] LABS: ALT/SGPT 11 U/L (7.0-40); AST/SGOT 10 U/L (<34); CREATININE FOR GFR 0.51 MG/DL (0.55-1.30); GLOMERULAR FILTRATION RATE > 90.0 (>60)
[2025-02-21 16:59] LABS: GC DNA AMPLIFICATION NEGATIVE (NEGATIVE)
[2025-02-21 16:59] LABS: HIV 1&2 SCREEN NEGATIVE (NEGATIVE)
[2025-02-21 17:04] LABS: Trichomonas vaginalis (AMP) NOT DETECTED (NEGATIVE)
[2025-02-21 17:07] LABS: HEPATITIS C VIRUS ABY INDEX < 0.02 INDEX (<0.8)
== END ==
LOC: M LAB 14:15
PROVIDERS: ATTEND Advanced Practice Midwife
DX: O30.001 Twin pregnancy, unspecified number of placenta and unspecified number of amniotic sacs, first trimester (principal); Z3A.00 Weeks of gestation of pregnancy not specified

== ENCOUNTER → 2025-03-03 | Outpatient (CLI) | payer BC | LOC: M RAD 15:06 | PROVIDERS: ATTEND Advanced Practice Midwife | DX: O30.091 Twin pregnancy, unable to determine number of placenta and number of amniotic sacs, first trimester (principal); Z3A.12 12 weeks gestation of pregnancy ==

== ENCOUNTER → 2025-04-17 | Outpatient (CLI) | payer BC | LOC: M WHC 14:22 | PROVIDERS: ATTEND Student in an Organized Health Care Education/Training Program | DX: O30.049 Twin pregnancy, dichorionic/diamniotic, unspecified trimester (principal) ==

== ENCOUNTER → 2025-05-23 | Outpatient (CLI) | payer BC | LOC: M WHC 11:36 | PROVIDERS: ATTEND Obstetrics & Gynecology | DX: O30.042 Twin pregnancy, dichorionic/diamniotic, second trimester (principal); Z3A.00 Weeks of gestation of pregnancy not specified ==

== ENCOUNTER → 2025-05-23 | Outpatient (CLI) | payer BC ==
[2025-05-23 14:23] LABS: PLATELET COUNT, AUTOMATED 371 10^3/uL (150-450)
[2025-05-23 14:45] LABS: GLUCOSE CHALLENGE TEST 1 HOUR 124 MG/DL (LESS THAN 140)
[2025-05-23 15:17] LABS: HIV 1&2 SCREEN NEGATIVE (NEGATIVE)
[2025-05-23 15:22] LABS: Trichomonas vaginalis (AMP) NOT DETECTED (NEGATIVE)
[2025-05-23 15:24] LABS: HEPATITIS C VIRUS ABY INDEX 0.04 INDEX (<0.8)
[2025-05-23 15:46] LABS: GC DNA AMPLIFICATION NEGATIVE (NEGATIVE)
== END ==
LOC: M PLALAB 10:25
PROVIDERS: ATTEND Obstetrics & Gynecology
DX: O30.042 Twin pregnancy, dichorionic/diamniotic, second trimester (principal); Z3A.00 Weeks of gestation of pregnancy not specified